=== PATIENT | female | born 1955 | race Caucasian/White ===

== ENCOUNTER 2024-08-18 10:47 | Outpatient (CLI) | payer MEDICARE, OTHER, SELFPAY ==
[2024-08-18 11:40] LABS: Anion Gap 6 mmol/L (4-12); Blood Urea Nitrogen 15 mg/dL (7-17); Calcium 8.7 mg/dL (8.4-10.2); Carbon Dioxide 29 mmol/L (22-30); Chloride 104 mmol/L (98-107); Estimated Glomerular Filt Rate > 60; Glucose 117 mg/dL (65-110); Sodium 139 mmol/L (137-145)
== END 2024-08-18 10:48 | disposition home or self-care (01) ==
PROVIDERS: Anesthesiology; Visit Provider Urology
DX: N36.42 Intrinsic sphincter deficiency (ISD) (principal); E11.9 Type 2 diabetes mellitus without complications
CPT/HCPCS: 36415; 80048; 87077; 87086; 87186

== ENCOUNTER 2024-08-26 03:02 | Day surgery (SDC) | payer MEDICARE, SELFPAY ==
[2024-08-17 08:59] VITALS: BMI 30.4
--- NOTE | 2024-08-17 09:16 | PC.NURSE ---
Report to the Outpatient Waiting Room, entrance under the green pavilion located off [facility], at time __06:00am__ on date 08/26/24 . Planned Procedure Time: ___0730am .? Time changes happen often and if your time is changed the preop area will call you the afternoon before. - You and your visitor will be asked to self-screen and do not enter if you have any COVID symptoms. Please call surgeon if you need to reschedule. - A mask is optional within the hospital at this time. Patients may have clear liquids (water, carbonated beverages, clear teas, apple juice) until 3 hours prior to surgery with a maximum of 20 ounces. - No food from midnight until time of surgery and no smoking (0430) Take only the following medications with a SIP of water on the morning of surgery: __Duloxetine and Imdur, Tylenol if needed DO NOT STOP ANY OF YOUR OTHER PRESCRIPTION MEDICATIONS PRIOR TO SURGERY EXCEPT THE FOLLOWING Medications to discontinue per physician Aspirin, Vitamins and supplements 7 day prior to surgery per Dr Prasad. Date to take last dose___08/16/24 - per pt already stopped. Please no make-up, nail maori, hairspray, perfume, deodorant, or body powder the day of surgery.? No jewelry (including any body piercings) or valuables the day of surgery, leave them at home.? Please take a shower or bath the night before, or the morning of, surgery with an antibacterial soap.? Wear comfortable, loose fitting clothing.? - Jewelry must be removed prior to entering the operating room.? Rings and piercings that are not removed may be cut off. - The hospital will not accept responsibility for valuables.? - Please leave all valuables, including medications, at home the day of surgery. If you are going home after surgery, a licensed local company refrigerated truck driver must drive you home.? - NO public transportation without another adult if you receive anesthesia. - We recommend that an adult stay with you for 24 hours following discharge. - We also recommend that you do not drive, make important decision, drink alcoholic beverages, or take any drugs that were not prescribed by your health care provider for at least 24 hours after your discharge time. Follow any additional instructions given to you from your surgeon. Telephone instructions given to ___Patient and asked if any additional questions and then verbalized understanding. Patient advised to call surgeon office or pre surgery nurse liaison [phone] if any additional questions.
--- NOTE | 2024-08-20 15:52 | PM.IMHP ---
H&P: HPI History of Present Illness Date/Time: 08/20/24 15:52 Chief Complaint: ISD Narrative: LUIS due to ISD Review of Systems Review of Systems: All systems reviewed & are unremarkable except as noted in HPI and below PMFSH Social History Social History Smoking status: Never smoker Alcohol intake: never Living arrangements: with family Additional living arrangements comments: Spiritual care concerns: No Meds Home Medications and Allergies Home Medications Medication Instructions Recorded Confirmed Type aspirin 81 mg chewable tablet 81 mg PO DAILY 08/17/24 08/17/24 History duloxetine 30 mg capsule,delayed 30 mg PO DAILY 08/17/24 08/17/24 History release insulin aspart U-100 100 unit/mL See Rx Instructions .Route 08/17/24 08/17/24 History subcutaneous solution (Novolog .COMPLEX glucose U-100 Insulin aspart) isosorbide mononitrate 30 mg 30 mg PO DAILY 08/17/24 08/17/24 History tablet,extended release 24 hr metoprolol succinate 25 mg 25 mg PO HS 08/17/24 08/17/24 History tablet,extended release 24 hr rxbtqvgr-foc-MH 200 mcg-vit K 15 1 tablet PO DAILY 08/17/24 08/17/24 History mcg-lycope 150 ewt-xirrrr-oobd tablet (Ocuvite Eye Plus Multi) omeprazole 20 mg capsule,delayed 20 mg PO DAILY 08/17/24 08/17/24 History release pravastatin 40 mg tablet 40 mg PO HS 08/17/24 08/17/24 History vit N03-HY-acjgmmceoo-LC no.15 500 1 cap PO WEEKLY 08/17/24 08/17/24 History mcg-400 mcg-10 mg-400 mg capsule Allergies Allergy/AdvReac Type Severity Reaction Status Date / Time amoxicillin Allergy Intermediate Rash Verified 08/17/24 08:49 bacitracin Allergy Intermediate Unknown Verified 08/17/24 08:49 ciprofloxacin [From Cipro] Allergy Intermediate Rash Verified 08/17/24 08:49 codeine Allergy Intermediate Nausea Verified 08/17/24 08:49 levofloxacin [From Levaquin] Allergy Intermediate Rash Verified 08/17/24 08:49 neomycin Allergy Intermediate Rash Verified 08/17/24 08:49 Penicillins Allergy Intermediate Rash Verified 08/17/24 08:49 pollen extracts Allergy Mild Congested Verified 08/17/24 08:49 adhesive tape AdvReac Intermediate Rash Verified 08/17/24 08:49 microfibrillar collagen AdvReac Mild Eye issues Verified 08/17/24 08:49 hemostat, e mold AdvReac Mild Congested Verified 08/17/24 08:49 Exam Narrative: no urethral mobility Assessment and Plan Assessment and plan (1) Intrinsic sphincter deficiency (ISD): Code(s): N36.42 - Intrinsic sphincter deficiency (ISD) Status: Acute Assessment and Plan: Cystoscopy/bulking agent
--- NOTE | 2024-08-26 04:43 | WPDHPUPDATE1 ---
History and Physical Update Update Date/Time: 08/26/24 04:43 History and Physical has been reviewed, including an updated exam of the patient. There are NO changes in the patient's condition. Risks, benefits, and alternatives have been discussed and questions answered. Patient agrees to proceed with procedure.
[2024-08-26 06:21] LABS: Glucose Point of Care 78 mg/dl (65-105)
[2024-08-26 06:30] VITALS: BP 152/67; PULSE 55; RESP 16; TEMP 36.3; O2SAT 100; BMI 31.0
[2024-08-26] MEDS: LACTATED RINGERS 1,000 ML 30 ML IV CONT (06:55)
--- NOTE | 2024-08-26 07:04 | P.PNAN_ITS ---
Anes - Initial Pre Proc Eval Procedure: Operation Date: 08/26/24 07:30 Proposed Procedures p Cystoscopy, Injection Bulking Agent - Terrence Prasad MD Date/Time: 08/26/24 07:04 Surgeon: Terrence Prasad MD Pre Op Diagnosis: ID Patient Data Age: 69 Gender: F Height: 1.6 m Weight: 78 kg Allergies Allergy/AdvReac Type Severity Reaction Status Date / Time amoxicillin Allergy Intermediate Rash Verified 08/26/24 06:55 bacitracin Allergy Intermediate Unknown Verified 08/26/24 06:55 ciprofloxacin [From Cipro] Allergy Intermediate Rash Verified 08/26/24 06:55 codeine Allergy Intermediate Nausea Verified 08/26/24 06:55 levofloxacin [From Levaquin] Allergy Intermediate Rash Verified 08/26/24 06:55 neomycin Allergy Intermediate Rash Verified 08/26/24 06:55 Penicillins Allergy Intermediate Rash Verified 08/26/24 06:55 pollen extracts Allergy Mild Congested Verified 08/26/24 06:55 adhesive tape AdvReac Intermediate Rash Verified 08/26/24 06:55 microfibrillar collagen AdvReac Mild Eye issues Verified 08/26/24 06:55 hemostat, e mold AdvReac Mild Congested Verified 08/26/24 06:55 Home Medications Medication Instructions Recorded Confirmed Type aspirin 81 mg chewable tablet 81 mg PO DAILY 08/17/24 08/17/24 History duloxetine 30 mg capsule,delayed 30 mg PO DAILY 08/17/24 08/17/24 History release insulin aspart U-100 100 unit/mL See Rx Instructions .Route 08/17/24 08/17/24 History subcutaneous solution (Novolog .COMPLEX glucose U-100 Insulin aspart) isosorbide mononitrate 30 mg 30 mg PO DAILY 08/17/24 08/17/24 History tablet,extended release 24 hr metoprolol succinate 25 mg 25 mg PO HS 08/17/24 08/17/24 History tablet,extended release 24 hr tpuidwbe-cks-VQ 200 mcg-vit K 15 1 tablet PO DAILY 08/17/24 08/17/24 History mcg-lycope 150 qmt-eqjzxt-wzso tablet (Ocuvite Eye Plus Multi) omeprazole 20 mg capsule,delayed 20 mg PO DAILY 08/17/24 08/17/24 History release pravastatin 40 mg tablet 40 mg PO HS 08/17/24 08/17/24 History vit Y52-TC-nbkqvjbhiz-QW no.15 500 1 cap PO WEEKLY 08/17/24 08/17/24 History mcg-400 mcg-10 mg-400 mg capsule nitrofurantoin 1 cap PO BID 08/26/24 08/26/24 History monohydrate/macrocrystals 100 mg capsule Laboratory Tests 08/26/24 06:17 POC Capillary Glucose 78 mg/dl (65-105) Patient hx anesthesia problems: none Family hx anesthesia problems: none Results Review: All pre-operative results and documents have been reviewed as part of the pre- operative evaluation. [facility] Past Medical History Medical History (Updated 08/26/24 @ 07:05 by Bola Tapia MD) CAD (coronary artery disease) Surgical History Surgical History (Updated 08/26/24 @ 07:05 by Bola Tapia MD) Hx of CABG Social History Social History Smoking status: Never smoker Alcohol intake: never Living arrangements: with family Additional living arrangements comments: Spiritual care concerns: No Anes - Eval Final PreProcedure Day of Procedure 08/26/24 07:04 Patient weight: normal Heart: regular rate and rhythm Lungs: clear to auscultation Airway: Mallampati scale class II Neurological: alert and oriented Last oral intake: >/= 8 hours ASA classification: III Emergent: no Anesthetic plan: proceed Anesthesia type and monitoring: general GIVS and standard monitoring Results Review: All pre-operative results and documents have been reviewed as part of the pre- operative evaluation. Informed Consent: The patient's anesthetic plan and its attendant risks and benefits were discussed with the patient/family/POA. Questions were solicited and answers provided to the satisfaction of the patient/family/POA.
[2024-08-26] MEDS: ceFAZolin 2 GM/D5W 50 ML 2 GM/50 ML BAG IVPB (07:29)
[2024-08-26] MEDS: LIDOCAINE HCL 2% GEL UROJET 10 ML PKG MUCOUS MEM (07:43)
[2024-08-26 07:52] VITALS: BP 124/66; PULSE 56; RESP 14; O2SAT 100
--- NOTE | 2024-08-26 07:52 | W.PM.PROC2 ---
Procedure Note - Detailed Date of Procedure 08/26/24 Pre-op Diagnosis intrinsic sphincter deficiency Post-op Diagnosis Same Procedure Performed cystoscopy with suburethral injection of implant material Surgeon Terrence Prasad MD Anesthesia MAC and Local ( uro jet) Findings uncomplicated bulking agent Description of Procedure she was correctly identified. Consent obtained. She in the operating room. She was given monitored anesthesia care. She was placed in dorsal lithotomy position. She was prepped draped sterile fashion. Time-out performed. Cystoscopy revealed a normal-appearing bladder without abnormalities or inflammation. No tumors or stones. Urethra open consistent with intrinsic sphincter deficiency. Injected the bulking agent circumferentially. The tissues were quite fragile. They did excepting agent. I used 2 syringes total. There was appropriate bulking effect. Her bladder was left partially full. She was awakened transferred stable condition Estimated Blood Loss 0 Drains No Packing No Pathology None sent Condition Stable Disposition PACU
[2024-08-26 08:00] LABS: Glucose Point of Care 93 mg/dl (65-105)
[2024-08-26 08:05] VITALS: BP 152/68; PULSE 54; RESP 14; O2SAT 100
[2024-08-26 08:30] VITALS: BP 172/82; PULSE 56; RESP 14
[2024-08-26 09:00] VITALS: BP 179/84; PULSE 55; RESP 14
== END 2024-08-26 09:10 | disposition home or self-care (01) ==
PROVIDERS: Visit Provider Urology
PROC: 3E0K8GC Introduction of Other Therapeutic Substance into Genitourinary Tract, Via Natural or Artificial Opening Endoscopic (ICD-10-PCS; CPT 51715; principal; 2024-08-26 07:30)
DX: N36.42 Intrinsic sphincter deficiency (ISD) (principal); N39.3 Stress incontinence (female) (male); Z79.4 Long term (current) use of insulin; Z79.82 Long term (current) use of aspirin
CPT/HCPCS: 51715; 82948; J0690; J2405; J2704; J3010; J7120; L8606